=== PATIENT | male | born 1955 | race Caucasian/White ===

== ENCOUNTER 2023-01-14 16:35 | Emergency (ER) | payer BC, OTHER ==
[~2023-01-14] VITALS: Ht 205.7 cm; Wt 76.6 kg
[2023-01-14] MEDS ORDERED: LIDOCAINE 1% HCL (LOCAL ANESTH.) INJ 20ML MDV ID ONE (17:45)
[2023-01-14] MEDS ORDERED: TETANUS-DIPTH-ACEL PERTUSSIS 0.5ML SYR Tdap IM ONE (17:45)
[2023-01-14] MEDS ORDERED: ACETAMINOPHEN 500 MG TAB PO ONE (18:00)
[2023-01-14] MEDS ORDERED: CEPH-510 PO (18:01)
[2023-01-14] MEDS ORDERED: ACET1CAP14 PO (18:01)
[2023-01-14 18:58] VITALS: BP 149/65
== END 2023-01-14 19:01 | disposition home or self-care (01) ==
LOC: ER 16:35
DX: S01.91XA Laceration without foreign body of unspecified part of head, initial encounter (principal); I10 Essential (primary) hypertension; Z86.73 Personal history of transient ischemic attack (TIA), and cerebral infarction without residual deficits; W45.8XXA Other foreign body or object entering through skin, initial encounter; Y93.89 Activity, other specified; Y92.89 Other specified places as the place of occurrence of the external cause; Y99.8 Other external cause status
CPT/HCPCS: 12011; 70450; 90471; 90715; 99285; J2001; 12001